=== PATIENT | male | born 1985 | race Caucasian/White ===

== ENCOUNTER 2017-05-19 23:14 | Observation (INO) | payer OTHER ==
[~2017-05-19] VITALS: Ht 177.8 cm; Wt 83.0 kg
[2017-05-19 23:22] VITALS: BP 140/88; PULSE 67; RESP 18; TEMP 97.8; O2SAT 99
--- NOTE | 2017-05-19 23:24 | PD ---
HPI Chief Complaint: Chest Pain Time Seen by Provider: 23:17 Travel History International Travel<30 days: No Contact w/Intl Traveler<30days: No Traveled to known affect area: No History of Present Illness HPI 31-year-old male with no significant past medical history here for evaluation of chest pain. 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 Describes the discomfort as a pressure, 3 out of 10, worsens with inspiration, substernal and radiates to the left side of his chest. He denies fevers, chills, cough, recent illness. No hemoptysis. No history of DVT or PE. No known history of cardiac disease. There is family history of cardiac disease. He is a nonsmoker. No paresthesias or motor deficits. PFSH Social History Tobacco Use: No Allergies-Medications (Allergen,Severity, Reaction): Coded Allergies: No Known Allergies (Unverified , 05/19/17) Reported Meds & Prescriptions Reported Meds & Active Scripts Active No Active Prescriptions or Reported Medications Review of Systems Except as stated in HPI: all other systems reviewed are Neg Physical Exam Narrative GENERAL: Well-developed, well-nourished, comfortable, no apparent distress. SKIN: Focused skin assessment warm/dry. HEAD: Atraumatic. Normocephalic. EYES: Pupils equal and round. No scleral icterus. No injection or drainage. ENT: Mucous membranes pink and moist. NECK: Trachea midline. No JVD. CARDIOVASCULAR: Regular rate and rhythm. Distal pulses brisk and equal bilaterally. RESPIRATORY: No accessory muscle use. Clear to auscultation. Breath sounds equal bilaterally. GASTROINTESTINAL: Abdomen soft, non-tender, nondistended. MUSCULOSKELETAL: No obvious deformities. No clubbing. No cyanosis. No edema. Bilateral calves are supple, nontender. NEUROLOGICAL: Awake and alert. No obvious cranial nerve deficits. Motor grossly within normal limits. Normal speech. PSYCHIATRIC: Appropriate mood and affect; insight and judgment normal. Data Data Last Documented VS Vital Signs Date Time Temp Pulse Resp B/P (MAP) Pulse Ox O2 Delivery O2 Flow Rate FiO2 05/20/17 00:36 78 18 120/68 (85) 98 05/20/17 00:22 Room Air 05/19/17 23:22 97.8 Orders Orders Basic Metabolic Panel (Bmp) (05/19/17 23:20) Ckmb (Isoenzyme) Profile (05/19/17 23:20) Complete Blood Count With Diff (05/19/17 23:20) D-Dimer (05/19/17 23:20) Prothrombin Time / Inr (Pt) (05/19/17 23:20) Act Partial Throm Time (Ptt) (05/19/17 23:20) Troponin I (05/19/17 23:20) Chest, Single Ap (05/19/17 23:20) Ecg Monitoring (05/19/17 23:20) Bilateral Bp Monitoring (05/19/17:20) Iv Access Insert/Monitor (05/19/17:) Oximetry (05/19/17:) Aspirin Chew (Aspirin Chew) (05/19/17 23:30) Sodium Chloride 0.9% Flush (Ns Flush) (05/19/17 23:30) Ketorolac Inj (Toradol Inj) (05/19/17 23:30) Nitroglycerin Sl (Nitrostat Sl) (05/20/17 00:30) Potassium Chloride (Kcl) (05/20/17 00:45) Admit Order (Ed Use Only) (05/20/17 01:03) Place In Observation (05/20/17 01:03) Activity Bed Rest With Brp (05/20/17 01:03) Vital Signs (Adult) Q4H (05/20/17 01:03) Cardiac Rhythm .As Directed (05/20/17 01:03) Notify Dr: Other .PRN (05/20/17 01:03) Notify Parameters (05/20/17 01:03) Resp Oxygen Nasal Cannula (05/20/17 ) Ckmb (Isoenzyme) Profile (05/20/17 03:00) Ckmb (Isoenzyme) Profile (05/20/17 06:00) Troponin I (05/20/17 03:00) Troponin I (05/20/17 06:00) Electrocardiogram (05/20/17 03:00) Electrocardiogram (05/20/17 06:00) ^ Obtain (05/20/17 01:03) Sodium Chloride 0.9% Flush (Ns Flush) (05/20/17 01:15) Sodium Chloride 0.9% Flush (Ns Flush) (05/20/17 09:00) Morphine Inj (Morphine Inj) (05/20/17 01:15) Ondansetron Inj (Zofran Inj) (05/20/17 01:15) Nitroglycerin Sl (Nitrostat Sl) (05/20/17 01:15) Electronic Lab Technician / Telemetry CLAUDIO.Q8H (05/20/17 01:03) Diet Heart Healthy (05/20/17 Breakfast) Labs Laboratory Tests Test 05/19/17 23:20 White Blood Count 8.1 TH/MM3 Red Blood Count 5.57 MIL/MM3 Hemoglobin 14.5 GM/DL Hematocrit 44.1 % Mean Corpuscular Volume 79.1 FL Mean Corpuscular Hemoglobin 26.0 PG Mean Corpuscular Hemoglobin Concent 32.8 % Red Cell Distribution Width 13.0 % Platelet Count 227 TH/MM3 Mean Platelet Volume 8.7 FL Neutrophils (%) (Auto) 58.4 % Lymphocytes (%) (Auto) 30.5 % Monocytes (%) (Auto) 8.0 % Eosinophils (%) (Auto) 2.4 % Basophils (%) (Auto) 0.7 % Neutrophils # (Auto) 4.7 TH/MM3 Lymphocytes # (Auto) 2.5 TH/MM3 Monocytes # (Auto) 0.6 TH/MM3 Eosinophils # (Auto) 0.2 TH/MM3 Basophils # (Auto) 0.1 TH/MM3 CBC Comment DIFF FINAL Differential Comment Prothrombin Time 10.8 SEC Prothromb Time International Ratio 1.0 RATIO Activated Partial Thromboplast Time 28.1 SEC D-Dimer Quantitative (PE/DVT) 0.22 MG/L FEU Blood Urea Nitrogen 10 MG/DL Creatinine 1.00 MG/DL Random Glucose 100 MG/DL Calcium Level 8.4 MG/DL Sodium Level 140 MEQ/L Potassium Level 3.3 MEQ/L Chloride Level 103 MEQ/L Carbon Dioxide Level 26.7 MEQ/L Anion Gap 10 MEQ/L Estimat Glomerular Filtration Rate 88 ML/MIN Total Creatine Kinase 74 U/L Troponin I LESS THAN 0.02 NG/ML MDM Medical Decision Making Medical Screen Exam Complete: Yes Emergency Medical Condition: Yes Interpretation(s) EKG: Sinus, rate 80, normal axis, normal intervals, no acute ischemic abnormality. Differential Diagnosis ACS, pneumothorax, peritonitis, PE, pneumonia, pleurisy, costochondritis/msk pain Narrative Course Vital signs show heart rate 60, blood pressure 123/83, pulse ox 98% on room air , oral temp of 97.8F. CBC: WBC 8.1, hemoglobin 14.5, hematocrit 44.1, platelets 227. BMP is remarkable for potassium 3.3 which was replaced orally, otherwise unremarkable. Cardiac enzymes are negative. D-dimer 0.22. Chest x-ray: Normal exam. The patient was initially given a full dose of aspirin as well as a dose of Toradol. He had no improvement in chest pain after Toradol. He was given a dose of sublingual nitroglycerin, again without improvement in pain. Pain is constant, substernal, described as dull/pressure, radiates to his left chest. There is family history of cardiac disease on his father's side. He is a nonsmoker. He'll be admitted to the chest pain center for further cardiac evaluation He is amenable to this plan. Case discussed with hospitalist Dr Ellis who will admit the patient to her service. Diagnosis Primary Impression: Chest pain Qualified Codes: R07.9 - Chest pain, unspecified Additional Impression: Hypokalemia Admitting Information Admitting Physician Requests: Observation Scripts No Active Prescriptions or Reported Meds Jason Morales MD May 19, 2017 23:24
[2017-05-19 23:29] VITALS: O2SAT 100
[2017-05-19] MEDS ORDERED: ASPIRIN 81 MG CHEW TAB PO ONE (23:30)
[2017-05-19] MEDS ORDERED: KETOROLAC TROMETHAMINE 30 MG/ML (IVP) VIAL IV PUSH ONE (23:30)
[2017-05-19] MEDS ORDERED: SODIUM CHLORIDE 0.9% FLUSH 10 ML FLUSH IVF PRN (23:30)
[2017-05-19 23:31] LABS: AUTOMATED NEUTROPHIL # 4.7 TH/MM3 (1.8-7.7); BASOPHIL # 0.1 TH/MM3 (0-0.2); BASOPHIL % 0.7 % (0.0-2.0); EOSINOPHIL # 0.2 TH/MM3 (0-0.4); EOSINOPHIL % 2.4 % (0.0-4.0); HEMATOCRIT 44.1 % (39.0-51.0); HEMO FLAGS DIFF FINAL; LYMPH % 30.5 % (9.0-44.0); LYMPHOCYTE # 2.5 TH/MM3 (1.0-4.8); MEAN CELL VOLUME 79.1 FL (80.0-100.0); MEAN CORPUSCULAR HGB CONC 32.8 % (32.0-36.0); NEUT % 58.4 % (16.0-70.0); PLATELET COUNT 227 TH/MM3 (150-450); RED BLOOD COUNT 5.57 MIL/MM3 (4.50-5.90); WHITE BLOOD COUNT 8.1 TH/MM3 (4.0-11.0)
[2017-05-19 23:32] VITALS: BP_SYST 119; BP_SYST 123; BP_DIAS 81; BP_DIAS 83
[2017-05-19 23:42] LABS: CHLORIDE 103 MEQ/L (98-107); POTASSIUM 3.3 MEQ/L (3.5-5.1); SODIUM (NA) 140 MEQ/L (136-145)
[2017-05-19 23:44] LABS: ANION GAP 10 MEQ/L (5-15); BICARBONATE 26.7 MEQ/L (21.0-32.0); BLOOD UREA NITROGEN 10 MG/DL (7-18)
[2017-05-19 23:48] LABS: GLOMERULAR FILTRATION RATE 88 ML/MIN (>89)
[2017-05-19 23:50] LABS: APTT (PATIENT) 28.1 SEC (24.3-30.1); PROTHROMBIN TIME - PATIENT 10.8 SEC (9.8-11.6)
--- NOTE | 2017-05-19 23:50 | RADRPT ---
EXAM DATE/TIME: 05/19/2017 23:34 [facility] COMPARISON: No previous studies available for comparison. INDICATIONS : Chest pain for 1 hour MEDICAL HISTORY : None. SURGICAL HISTORY : None. ENCOUNTER: Initial ACUITY: 1 day PAIN SCORE: 5/10 LOCATION: Bilateral chest FINDINGS: A single view of the chest demonstrates the lungs to be symmetrically aerated without evidence of mas s, infiltrate or effusion. The cardiomediastinal contours are unremarkable. Osseous structures are intact. CONCLUSION: Normal examination. Curtis Kelley MD on May 19, 2017 at 23:49 Board Certified Radiologist. This report was verified electronically.
[2017-05-19 23:54] LABS: CREATINE KINASE 74 U/L (39-308)
[2017-05-20] VITALS (10 sets, daily range): BP systolic 105–131; BP diastolic 65–80; PULSE 52–90; RESP 15–18; TEMP 97.2–97.8; O2SAT 96–99
[2017-05-20] MEDS ORDERED: NITROGLYCERIN 0.4 MG SL 25 TABS/BTL SL ONE (00:30)
[2017-05-20] MEDS ORDERED: POTASSIUM CHLORIDE 20 MEQ CONTROLLED RELEASE TAB PO ONE (00:45)
[2017-05-20] MEDS ORDERED: ONDANSETRON HCL 4 MG/2 ML VIAL IV PUSH PRN (01:15)
[2017-05-20] MEDS ORDERED: MORPHINE SULFATE 2 MG/ML INJ IV PRN (01:15)
[2017-05-20] MEDS ORDERED: MORPHINE SULFATE 4 MG/ML INJ IV PUSH PRN (01:15)
[2017-05-20] MEDS ORDERED: SODIUM CHLORIDE 0.9% FLUSH 10 ML FLUSH IV FLUSH PRN (01:15)
[2017-05-20] MEDS ORDERED: NITROGLYCERIN 0.4 MG SL 25 TABS/BTL SL PRN (01:15)
[2017-05-20 04:17] LABS: CREATINE KINASE 57 U/L (39-308)
[2017-05-20 07:20] LABS: CREATINE KINASE 56 U/L (39-308)
[2017-05-20] MEDS ORDERED: SODIUM CHLORIDE 0.9% FLUSH 10 ML FLUSH IV FLUSH SCH (09:00)
--- NOTE | 2017-05-20 09:15 | HHI.HP ---
[facility] No Primary Care Physician Admission Diagnosis Chest Pain Diagnoses: (1) Chest pain (2) Hypokalemia Chief Complaint: Chest pain Travel History International Travel<30 Days: No Contact w/Intl Traveler <30 Da: No Traveled to Known Affected Are: No History of Present Illness Written by Jennifer Duke, acting as scribe for Dr. Bernardo on 05/20/17 at 09: 08. Mr. Menard is a 31-year-old male patient with no signifcant medical history who presented to the ED with complaints of chest pain. 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 He rates the pain a 5/10 at its worse on pain scale, pressure-like and constant in nature, located in the middle of his chest with some radiation to the left chest , denies any associate nausea, vomiting, dyspnea or diaphoresis. Denies ever having this pain before. Does recently state he has increased life stressors. Denies any recent illness including fever, chills, headache, cough, shortness of breath, ab pain, n/v/d or dysuria. At the time of assessment patient states that the chest discomfort is still present but has diminished with the use of Aspirin, Toradol and Nitro SL in the ED. Pain is reproducible to palpation. Denies any prior stress testing in the past. Review of Systems Constitutional: DENIES: Fatigue, Fever, Chills, Dizziness Eyes: DENIES: Diplopia Respiratory: DENIES: Cough, Shortness of breath Cardiovascular: COMPLAINS OF: Chest pain, DENIES: Palpitations Gastrointestinal: DENIES: Abdominal pain, Constipation, Diarrhea, Nausea, Vomiting Musculoskeletal: DENIES: Joint pain Psychiatric: COMPLAINS OF: Anxiety Except as stated in HPI: all other systems reviewed are Neg Past Family Social History Past Medical History No medical history. Past Surgical History Appendectomy Tonsillectomy Reported Medications Active No Active Prescriptions or Reported Medications Allergies: Coded Allergies: No Known Allergies (Unverified , 05/19/17) Active Ordered Medications Current Medications Medications (Trade) Dose Ordered Sig/Issa Route Start Time Stop Time Status Last Admin (NS Flush) 2 ml UNSCH PRN IV FLUSH 05/20/17 01:15 (NS Flush) 2 ml BID IV FLUSH 05/20/17 09:00 (Zofran Inj) 4 mg Q6H PRN IV PUSH 05/20/17 01:15 (Nitrostat Sl) 0.4 mg Q5M PRN SL 05/20/17 01:15 (Morphine Inj) 2 mg Q4H PRN IV 05/20/17 01:15 Family History Grandfather had a history of cardiovascular disease and [place]. Mother is healthy. Unaware of father's medical history. Social History Denies any current tobacco use. Denies any alcohol use. Denies any illicit drug use. Physical Exam Vital Signs Vital Signs Date Time Temp Pulse Resp B/P (MAP) Pulse Ox O2 Delivery O2 Flow Rate FiO2 05/20/17 08:00 97.4 53 15 105/79 (88) 99 05/20/17 05:43 97.7 82 18 128/65 (86) 99 05/20/17 02:19 97.8 79 18 130/70 (90) 96 05/20/17 02:10 90 05/20/17 01:55 74 18 131/74 (93) 100 05/20/17 01:33 98 21 05/20/17 00:36 78 18 120/68 (85) 98 05/20/17 00:36 18 05/20/17 00:34 18 05/20/17 00:22 60 18 108/78 (88) 98 Room Air 05/19/17 23:32 123/83 (96) 119/81 (94) 05/19/17 23:29 100 Room Air 05/19/17 23:26 Room Air 05/19/17 23:22 97.8 67 18 140/88 (105) 99 Physical Exam GENERAL: This is a well-nourished, well-developed male patient, in no apparent distress. SKIN: No rashes, ecchymoses or lesions. Warm and dry. HEENT: Atraumatic. Normocephalic. Pupils equal round and reactive. Extraocular motions intact. No scleral icterus. No injection or drainage. Nose without bleeding, purulent drainage or septal hematoma. Throat without erythema, tonsillar hypertrophy or exudate. Uvula midline. Airway patent. NECK: Trachea midline. No JVD. Supple. CARDIOVASCULAR: Regular rate and rhythm without murmurs, gallops, or rubs. Reproducible chest pain to palpation RESPIRATORY: Clear to auscultation. Breath sounds equal bilaterally. No wheezes , rales, or rhonchi. GASTROINTESTINAL: Abdomen soft, non-tender, nondistended. No guarding. MUSCULOSKELETAL: Extremities without clubbing, cyanosis, or edema. No joint tenderness, effusion, or edema noted. NEUROLOGICAL: Awake and alert. Cranial nerves II through XII intact. Motor and sensory grossly within normal limits. Five out of 5 muscle strength in all muscle groups. Normal speech. Laboratory Laboratory Tests Test 05/19/17 23:20 05/20/17 03:25 05/20/17 05:30 White Blood Count 8.1 Red Blood Count 5.57 Hemoglobin 14.5 Hematocrit 44.1 Mean Corpuscular Volume 79.1 Mean Corpuscular Hemoglobin 26.0 Mean Corpuscular Hemoglobin Concent 32.8 Red Cell Distribution Width 13.0 Platelet Count 227 Mean Platelet Volume 8.7 Neutrophils (%) (Auto) 58.4 Lymphocytes (%) (Auto) 30.5 Monocytes (%) (Auto) 8.0 Eosinophils (%) (Auto) 2.4 Basophils (%) (Auto) 0.7 Neutrophils # (Auto) 4.7 Lymphocytes # (Auto) 2.5 Monocytes # (Auto) 0.6 Eosinophils # (Auto) 0.2 Basophils # (Auto) 0.1 CBC Comment DIFF FINAL Differential Comment Prothrombin Time 10.8 Prothromb Time International Ratio 1.0 Activated Partial Thromboplast Time 28.1 D-Dimer Quantitative (PE/DVT) 0.22 Blood Urea Nitrogen 10 Creatinine 1.00 Random Glucose 100 Calcium Level 8.4 Sodium Level 140 Potassium Level 3.3 Chloride Level 103 Carbon Dioxide Level 26.7 Anion Gap 10 Estimat Glomerular Filtration Rate 88 Total Creatine Kinase 74 57 56 Troponin I LESS THAN 0.02 LESS THAN 0.02 LESS THAN 0.02 Result Diagram: 05/19/17231905/19/172319 Imaging Last Impressions Chest X-Ray 05/19/172319 Signed Impressions: Service Date/Time: Friday, May 19, 2017 23:34 - CONCLUSION: Normal examination. Curtis Kelley MD Caprini VTE Risk Assessment Capjignesh VTE Risk Assessment: No/Low Risk (score <= 1) Caprini Risk Assessment Model Point Value = 1 Point Value = 2 Point Value = 3 Point Value = 5 Age 41-60 Minor surgery BMI > 25 kg/m2 Swollen legs Varicose veins or History of unexplained or recurrent spontaneous Oral contraceptives or hormone replacement Sepsis (< 1 month) Serious lung disease, including pneumonia (< 1 month) Abnormal pulmonary function Acute myocardial infarction Congestive heart failure (< 1 month) History of inflammatory bowel disease Medical patient at bed rest Age 61-74 Arthroscopic surgery Major open surgery (> 45 min) Laparoscopic surgery (> 45 min) Malignancy Confined to bed (> 72 hours) Immobilizing plaster cast Central venous access Age >= 75 History of VTE Family history of VTE Factor V Leiden Prothrombin [id number] Lupus anticoagulant Anticardiolipin antibodies Elevated serum homocysteine Heparin-induced thrombocytopenia Other congenital or acquired thrombophilia Stroke (< 1 month) Elective arthroplasty Hip, pelvis, or leg fracture Acute spinal cord injury (< 1 month) Prophylaxis Regimen Total Risk Factor Score Risk Level Prophylaxis Regimen 0-1 Low Early ambulation 2 Moderate Order ONE of the following: *Sequential Compression Device (SCD) *Heparin 5000 units SQ BID 3-4 Higher Order ONE of the following medications: *Heparin 5000 units SQ TID *Enoxaparin/Lovenox 40 mg SQ daily (WT < 150 kg, CrCl > 30 mL/min) *Enoxaparin/Lovenox 30 mg SQ daily (WT < 150 kg, CrCl > 10-29 mL/min) *Enoxaparin/Lovenox 30 mg SQ BID (WT < 150 kg, CrCl > 30 mL/min) AND/OR *Sequential Compression Device (SCD) 5 or more Highest Order ONE of the following medications: *Heparin 5000 units SQ TID (Preferred with Epidurals) *Enoxaparin/Lovenox 40 mg SQ daily (WT < 150 kg, CrCl > 30 mL/min) *Enoxaparin/Lovenox 30 mg SQ daily (WT < 150 kg, CrCl > 10-29 mL/min) *Enoxaparin/Lovenox 30 mg SQ BID (WT < 150 kg, CrCl > 30 mL/min) AND *Sequential Compression Device (SCD) Assessment and Plan Problem List: (1) Chest pain ICD Code: R07.9 - Chest pain, unspecified Status: Acute Plan: Serial EKGs and serial troponins ordered for ruling out ACS purposes. Serial troponins flat. EKG reviewed showing sinus bradycardia, no arrhythmias noted, no ST changes noted. CXR reviewed showing no acute disease. CBC and BMP reviewed and essentially unremarkable. Morphine IV available for pain control per pain scale. Nitroglycerin SL available PRN. A treadmill stress test has been ordered and performed to rule out any ischemia. Awaiting results of test. Patient is stable at this time and agreeable to the plan. (2) Hypokalemia ICD Code: E87.6 - Hypokalemia Status: Acute Plan: K 3.3 on presentation. Status post replacement. Monitor. Code Status Full code Discussed Condition With Patient This note was transcribed by scribe [Jennifer Duke]. I, Dr. Amadou Bernardo personally performed the history, physical exam, and medical decision making; and confirmed the accuracy of the information in the transcribed note. Authenticated by Dr. Amadou Bernardo on 05/20/17 at 0915. *Treadmill stress test images set to taxonomist, Dr. Ramesh, who read and reported test to be normal OK to discharge. Patient updated about stress tests results. Problem Qualifiers (1) Chest pain: Qualified Codes: R07.9 - Chest pain, unspecified Jennifer Duke May 20, 2017 09:15 Amadou Bernardo MD May 20, 2017 11:22
--- NOTE | 2017-05-20 12:05 | TR ---
Date Performed: 05/20/2017 Time Performed: 09:29:44 DOCTOR: Stan Ramesh DRUG LIST: CLINICAL HISTORY: REASON FOR TEST: Chest pain REASON FOR ENDING: OBSERVATION: CONCLUSION: Zachary protocol performed test stopped secondary to meeting target heart rate. Great exercise tolerance. Good BP response. No ST changes to indicate ischemia. Recovery quick and unremark able. No reproducible chest pain. Maximum DG=999 Target HR Pugropfq=752.0% Maximum XB=716/80 Total Ex ercise Time=9:00 COMMENTS: Conclusion: Normal treadmill exercise. No evidence of ischemia.
--- NOTE | 2017-05-20 12:07 | HHI.DCPOC ---
Discharge Care Plan Diagnosis: (1) Chest pain (2) Hypokalemia Your Health Problems Are: Chest Pain Goals to Promote Your Health * To prevent worsening of your condition and complications * To maintain your health at the optimal level Directions to Meet Your Goals Take your medications as prescribed Follow your dietary instruction Follow activity as directed Keep your appointments as scheduled Take your immunizations and boosters as scheduled If your symptoms worsen call your PCP, if no PCP go to Urgent Care Center or Emergency Room Smoking is Dangerous to Your Health. Avoid second hand smoke Call the 24-hour hour crisis hotline for domestic abuse at Jennifer Duke May 20, 2017 12:07
--- NOTE | 2017-05-20 14:21 | EKG ---
Date Performed: 05/20/2017 Time Performed: 05:45:40 PTAGE: 31 years EKG: SINUS BRADYCARDIA BORDERLINE ECG PREVIOUS TRACING : 05/20/2017 02.49 Since previous tracing, no significant change noted DOCTOR: Stan Ramesh Interpretating Date/Time 05/20/2017 14:20:14
--- NOTE | 2017-05-20 14:23 | EKG ---
Date Performed: 05/20/2017 Time Performed: 02:49:56 PTAGE: 31 years EKG: Sinus rhythm NORMAL ECG Since PREVIOUS TRACING , no significant change noted DOCTOR: Stan Ramesh Interpretating Date/Time 05/20/2017 14:22:27
--- NOTE | 2017-05-20 14:38 | EKG ---
Date Performed: 05/19/2017 Time Performed: 23:14:59 PTAGE: 31 years EKG: Sinus rhythm WITH SINUS ARRHYTHMIA NORMAL ECG NO PREVIOUS TRACING DOCTOR: Stan Ramesh Interpretating Date/Time 05/20/2017 14:36:54
== END 2017-05-20 14:00 | disposition home or self-care (01) ==
LOC: PHED 23:14 → PHEDA 05-20 01:05 → PH3B 05-20 02:06
PROVIDERS: ADMIT Family Medicine; ATTEND Family Medicine
DX: R07.89 Other chest pain (principal); E87.6 Hypokalemia; R00.1 Bradycardia, unspecified; I49.8 Other specified cardiac arrhythmias; F41.9 Anxiety disorder, unspecified; Z82.49 Family history of ischemic heart disease and other diseases of the circulatory system
CPT/HCPCS: 71010; 80048; 82550; 84484; 85025; 85379; 85610; 85730; 93005; 93017; 96374; 99285; G0378; J1885